=== PATIENT | male | born 1950 | race Caucasian/White ===

== ENCOUNTER 2017-01-16 10:45 | Inpatient (IN) | payer OTHER ==
[2016-12-14 15:00] VITALS: BMI 27.0
--- NOTE | 2016-12-14 15:31 | PAT Medication Instructions ---
Service Date Dec 14, 2016. Current Home Medication List Atorvastatin (Lipitor), 40 MG PO QPM Esomeprazole Magnesium (Nexium), 40 MG PO QAM Fiber (Fiber Formula), 1 CAP PO QAM Fish Oil ([place]-3), 1 CAP PO BID Flaxseed (Linseed) (Flaxseed Oil), 1 CAP PO BID Hydrocodone/Acetaminophen 5MG/325MG ([place] 5MG/325MG), 1 TABLET PO BID PRN for Pain Naproxen (Naprosyn), 375 MG PO BID Medication Instructions For Your Scheduled Surgery - Hold the following medications 2 weeks prior to surgery: Fish Oil ([place]-3), 1 CAP PO BID Flaxseed (Linseed) (Flaxseed Oil), 1 CAP PO BID - Hold the following medications 1 weeks prior to surgery per surgeon's instructions: Naproxen (Naprosyn), 375 MG PO BID - Hold the following medications the morning of surgery: Fiber (Fiber Formula), 1 CAP PO QAM Naproxen (Naprosyn), 375 MG PO BID - Take the following medications the morning of surgery with a sip of water OTHERWISE NOTHING TO EAT OR DRINK AFTER MIDNIGHT: Hydrocodone/Acetaminophen 5MG/325MG ([place] 5MG/325MG), 1 TABLET PO BID PRN for Pain (may take if needed up to 4 hours prior to surgery) Esomeprazole Magnesium (Nexium), 40 MG PO QAM - Take the following medications as scheduled the night before surgery: Hydrocodone/Acetaminophen 5MG/325MG ([place] 5MG/325MG), 1 TABLET PO BID PRN for Pain Atorvastatin (Lipitor), 40 MG PO QPM If you have any questions please call us at [phone] or [phone] or [phone]
--- NOTE | 2016-12-14 16:05 | DIAGNOSTIC IMAGING REPORT ---
CHEST PREADMISSION(PA/LAT) CLINICAL HISTORY: PAT preoperative evaluation COMPARISON STUDY: No previous studies for comparison. FINDINGS: The bones soft tissues and hemidiaphragms are normal. The cardiomediastinal silhouette is normal. The lungs are clear. The pulmonary vasculature is normal. IMPRESSION: Negative chest. Electronically signed by: Siva Peters M.D. 12/14/2016 4:03 PM Dictated Date/Time: 12/14/2016 4:02 PM
[2016-12-14 16:17] LABS: URINE APPEARANCE CLEAR (CLEAR); URINE BILIRUBIN NEG (NEG); URINE COLOR YELLOW; URINE NITRITE NEG (NEG); URINE SPECIFIC GRAVITY 1.022 (1.000-1.030); UROBILINOGEN NEG (NEG); ZZUR CULT IF INDIC CLEAN CATCH NO
[2016-12-14 16:18] LABS: BASO % 0.3 %; BASO ABS # 0.02 K/uL (0-0.2); COMPLETE YES; EOS % 2.5 %; HEMATOCRIT 42.5 % (42-52); IG% 0.2 %; LYMPH % 36.7 %; LYMPH ABS # 2.23 K/uL (1.2-3.4); MEAN CELL VOLUME 93.8 fL (80-100); MEAN CORPUSCULAR HEMOGLOBIN 33.8 pg (25-34); MEAN PLATELET VOLUME 10.4 fL (7.4-10.4); MONO % 4.6 %; NEUT % 55.7 %; PLATELET COUNT 179 K/uL (130-400); RED BLOOD COUNT 4.53 M/uL (4.7-6.1); WHITE BLOOD COUNT 6.08 K/uL (4.8-10.8)
[2016-12-14 16:18] LABS: MANUAL MICROSCOPIC REQUIRED? NO; REVIEW REQ? NO
[2016-12-14 16:26] LABS: BUN/CREATININE RATIO 18.7 (10-20); CALCIUM 8.7 mg/dl (8.5-10.1)
[2016-12-14 16:27] LABS: PROTHROMBIN TIME (PATIENT) 10.5 SECONDS (9.0-12.0)
[2016-12-15 06:05] LABS: ESTIMATED AVERAGE GLUCOSE 126 mg/dl; HA1C FLAG Normal (Normal)
--- NOTE | 2017-01-15 19:58 | HISTORY & PHYSICAL EXAMINATION ---
DATE OF ADMISSION: 01/16/2017 ADMISSION HISTORY AND PHYSICAL CHIEF COMPLAINT: Chronic right knee pain. HISTORY OF PRESENT ILLNESS: This is a 66-year-old male patient of Dr. Garcia'kate complaining of chronic right knee pain, longstanding, now progressively getting worse. He has been diagnosed with end-stage osteoarthritis, per clinical and radiographic exams. He has failed conservative treatment including anti-inflammatories, intra-articular injections and the use of a brace. The patient has increased pain with weightbearing activities and his pain does interfere with his activities of daily living. PAST MEDICAL HISTORY: Hypercholesterolemia, carpal tunnel syndrome, osteoarthritis, acid reflux, hiatal hernia and dental issues. SOCIAL HISTORY: Nonsmoker, nondrinker. PAST SURGICAL HISTORY: Negative. FAMILY HISTORY: Noncontributory. REVIEW OF SYSTEMS: The patient complains of chronic right knee pain and occasional instability. Otherwise, denies any shortness of breath, chest pain, nausea, vomiting or any other joint complaints. MEDICATIONS: 1. Fiber supplement daily. 2. Naprosyn as needed. 3. Atorvastatin 40 mg daily. 4. Flax seed oil 1000 mg daily. 5. [place] as needed. 6. Fish oil 500 mg daily. 7. Omeprazole 40 mg daily. ALLERGIES: No known drug allergies. PHYSICAL EXAMINATION: GENERAL: Well-developed, well-nourished 66-year-old male in no acute distress. He is alert and oriented x3 and pleasant. HEENT: Normocephalic, atraumatic. Extraocular motions are intact. Pupils are equal and reactive to light. HEART: Regular rate and rhythm, no murmurs appreciated. LUNGS: Clear. ABDOMEN: Soft, nontender, bowel sounds present. EXTREMITIES: Right knee reveals a varus deformity. He has medial joint line tenderness with a mild effusion. He has crepitation with passive range of motion, which is limited to 0-125 degrees. NEUROLOGIC: Neurovascularly, he is intact in his right lower extremity with 5/5 strength. DIAGNOSES: Right knee end-stage osteoarthritis, hypercholesterolemia, carpal tunnel syndrome, acid reflux, hiatal hernia and dental issues. PLAN: The patient was advised of his diagnosis. Indications, risks, benefits, and postop course have all been reviewed. The patient wishes to proceed with a right total knee arthroplasty. Necessary consent forms, preoperative testing and clearances will be obtained.
[~2017-01-16] VITALS: Ht 180.3 cm; Wt 89.9 kg
[2017-01-16] VITALS (7 sets, daily range): BP systolic 103–145; BP diastolic 62–88; PULSE 59–70; TEMP 36–36.6; O2SAT 95–98; Ht 180.3 cm; Wt 89.9 kg
[2017-01-16] MEDS: TRANEXAMIC ACID INJ 1,000 MG in SODIUM CHLORIDE 0.9% 100ML 100 ML IV SCH ×2 (06:30→13:06)
[~2017-01-16 10:45] MED LIST: ACETAMINOPHEN 500 MG TAB PO SCH; ATOR-24 PO; BUPIVACAINE 0.5 % 5 MG/1 ML PF 10ML VIAL ONE; CEFAZOLIN 2000 MG/60 ML D5W 60 ML IV SCH; CeleBREX 200 MG CAP PO SCH; DEXAMETHASONE 4 MG TAB PO SCH; FAMOTIDINE 20 MG TAB PO SCH; FIBE1CAP PO; FLAX12003 PO; GABAPENTIN 300 MG CAP PO SCH; HYDR-5688 PO; LACTATED RINGER'S 1000ML 1,000 ML IV SCH; LACTATED RINGER'S 1000ML IV SCH; LACTATED RINGER'S 500 ML IV SCH; METOCLOPRAMIDE HCL 10 MG TAB PO SCH; NAPR1TAB48 PO; NXM/40 PO; OMEG10007 PO; ROPIVACAINE 5MG/ML 30 ML 150 MG, BUPIVACAINE/EPINEPHR 0.5% MPF 30 ML, KETOROLAC TROMETH... INFIL SCH
--- NOTE | 2017-01-16 12:21 | History & Physical Bridge Note ---
H&P Re-Evaluation Bridge Note: I have examined the patient, reviewed the History & Physical and in the interval since the performance of the History & Physical I have noted the following changes of clinical significance: No changes noted
[2017-01-16] MEDS ORDERED: FENTANYL CITRATE INJ 50 MCG/1 ML 2 ML VIAL IV PRN (12:30)
[2017-01-16] MEDS ORDERED: EpHEDrine SULFATE INJ 50 MG/ML AMP IV PRN (12:30)
[2017-01-16] MEDS ORDERED: ONDANSETRON INJ 2 MG/ML 2 ML VIAL IV PRN ×2 (12:30→16:15)
[2017-01-16] MEDS ORDERED: ATROPINE SULFATE 0.1 MG/ML 5ML SYR IV PRN (12:30)
[2017-01-16] MEDS ORDERED: BACITRACIN 50000 UNIT VIAL ONE (12:53)
[2017-01-16] MEDS ORDERED: POVIDONE-IODINE OP SOLN 30 ML BTL ONE (12:53)
[2017-01-16] MEDS ORDERED: ORTHO JOINT ANESTHETIC ONE (12:53)
[2017-01-16] MEDS ORDERED: MIDAZOLAM HCL 1 MG/ML 2ML VIAL ONE (13:20)
[2017-01-16] MEDS ORDERED: FENTANYL CITRATE INJ 50 MCG/1 ML 2 ML VIAL ONE ×2 (13:20→15:50)
[2017-01-16] MEDS ORDERED: PROPOFOL IV EMULSION 10 MG/ML 20 ML VIAL IV ONE (14:28)
[2017-01-16] MEDS ORDERED: LIDOCAINE HCL 2% 2 ML VIAL (20MG/ML) ONE (14:28)
--- NOTE | 2017-01-16 15:47 | [facility] Operative Report ---
Operative Report Operative Date January 16, 2017. Pre-Operative Diagnosis Right knee end-stage osteoarthritis Post-Operative Diagnosis same Procedure(s) Performed right total knee replacement Surgeon Dr. Garcia Hammerer Surgeon(s) Siva Ortez PA-C Estimated Blood Loss 5mL Findings end stage djd oa medial compartment Specimens A. Right knee bone and tissue Drains 2 hemovac Disposition Recovery Room / PACU Indications end stage djd oa I attest to the content of the Intraoperative Record and any orders documented therein. Any exceptions are noted below.
[2017-01-16] MEDS ORDERED: MAGNESIUM HYDROXIDE SUSP 30 ML UDC PO PRN (16:15)
[2017-01-16] MEDS ORDERED: ZOLPIDEM TARTRATE 5 MG TAB PO PRN (16:15)
[2017-01-16] MEDS ORDERED: BISACODYL 10 MG SUPP PR PRN (16:15)
[2017-01-16] MEDS ORDERED: SOD PHOSPHATE/SOD BIPHOSPHATE ENEMA 132 ML BTL PR PRN (16:15)
[2017-01-16] MEDS ORDERED: TRAMADOL HCL 50 MG TAB PO PRN (16:15)
[2017-01-16] MEDS ORDERED: OXYCODONE HCL IR 5 MG TAB (IMMEDIATE RELEASE) PO PRN (16:15)
[2017-01-16] MEDS ORDERED: MoRPHine SULFATE 2 MG/ML CARP IV PRN (16:15)
--- NOTE | 2017-01-16 16:35 | DIAGNOSTIC IMAGING REPORT ---
RIGHT KNEE 1 OR 2 VIEWS ROUTINE CLINICAL HISTORY: Postop examination COMPARISON: None. DISCUSSION: There are postsurgical changes of a total right knee arthroplasty and patellar resurfacing. The femoral and tibial components appear well seated. Overlying skin hernan and surgical drains are evident. There is air within soft tissues consistent with recent surgery. IMPRESSION: Postsurgical changes of a total right knee arthroplasty. Electronically signed by: Marlon Riley M.D. 01/16/2017 4:33 PM Dictated Date/Time: 01/16/2017 4:31 PM
--- NOTE | 2017-01-16 16:49 | Anesthesiology Progress Note ---
Anesthesia Post Op Note Date & Time January 16, 2017 at 16:49 Vital Signs Pain Intensity: 0 Vital Signs Past 12 Hours Date Time Temp Pulse Resp B/P Pulse Ox O2 Delivery O2 Flow Rate FiO2 01/16/17 16:40 36.4 61 15 129/74 95 Nasal Cannula 2 01/16/17 16:30 60 13 112/70 96 Nasal Cannula 2 01/16/17 16:20 63 16 117/72 96 Nasal Cannula 2 01/16/17 16:10 77 13 124/75 95 Nasal Cannula 2 01/16/17 16:01 36.5 80 16 119/64 99 Mask 10 01/16/17 11:13 36.6 64 18 145/88 95 Room Air Notes Mental Status: alert / awake / arousable, participated in evaluation Pt Amnestic to Procedure: Yes Nausea / Vomiting: adequately controlled Pain: adequately controlled Airway Patency, RR, SpO2: stable & adequate BP & HR: stable & adequate Hydration State: stable & adequate Neuraxial Anesthesia: was administered, sensory block is resolving Anesthetic Complications: no major complications apparent Pt doing well.
[2017-01-16] MEDS ORDERED: MoRPHine SULFATE 4 MG/ML 1 ML CARP\\VIAL IV PRN (18:00)
[2017-01-16] MEDS: D5W AND 1/2NSS + 20MEQ KCL 1,000 ML IV SCH (18:06)
--- NOTE | 2017-01-16 18:09 | Progress Note ---
Progress Note Date of Service January 16, 2017. Progress Note consult done, [id number]
--- NOTE | 2017-01-16 18:28 | INTERNAL MEDICINE CONSULTATION ---
DATE OF ADMISSION: 01/16/2017 HISTORY AND PHYSICAL FOR CONSULTATION NOTE PHYSICIAN REQUESTING CONSULTATION: Dr. Garcia. REASON FOR CONSULTATION: Medical management after a right total knee arthroplasty. HISTORY OF PRESENT ILLNESS: The patient is a 66-year-old white male with a significant past medical history of dyslipidemia, carpal tunnel syndrome, osteoarthritis, GERD, hiatal hernia and dental issues, was admitted to Dr. Garcia's service because of chronic right knee pain. The patient had right total knee arthroplasty today. The procedure went well. When I interviewed with him, he was awake, alert and orientated, eating meal. No complaint. Denied fevers or chills. Denied cough, sputum, shortness of breath. Denied palpitation, lower extremity swelling. Denied dysuria, urgency and frequency. Denied nausea, vomiting, abdominal pain, diarrhea, constipation. Denied facial droop, slurry speeches or local weakness. PAST MEDICAL HISTORY: Like I mentioned in the above. ALLERGIES: No known drug allergy. SOCIAL HISTORY: Denied alcohol abuse disorder, denied tobacco abuse disorder, denied illicit drug abuse. PAST SURGICAL HISTORY: Include today right total knee arthroplasty. FAMILY HISTORY: Noncontributory. REVIEW OF SYSTEMS: Please see HPI, otherwise 14 points organ system review were negative. MEDICATIONS: Prior to admission include a fiber supplementation daily, naproxen as needed, atorvastatin 40 mg p.o. daily, [place] as needed, fish oil 500 mg p.o. daily, omeprazole 40 mg p.o. daily. PHYSICAL EXAMINATION: VITAL SIGNS: Temperature is 36, pulse 60, respiration rate 16, blood pressure 115/73, pulse ox was 98% in room air. GENERAL: The patient is white male, awake, alert and orientated, conversational, follows all commands, smiling. HEAD: Normocephalic. EYES: Pupils equal, round responds to light. EARS: Ear was normal. NOSE: Normal. NECK: Supple. Thyroid no enlargement. Trachea midline. HEART: Regular rhythm. S1, S2. LUNGS: Decreased breathing sounds. There were no wheezing, rhonchi or crackles. ABDOMEN: Soft, nontender. Bowel sound was positive. GENITOURINARY AND RECTAL: Deferred. EXTREMITIES: Right knee s/p arthroplasty, in dressing. Bilateral lower extremity - no swelling, Homans sign was negative, calves were nontender. NEUROLOGICAL EVALUATION: Cranial nerves II-XII was intact. There was no focal deficit. LABORATORY STUDIES: WBC 6, hemoglobin 15, platelets 179. PT/INR was 10/1. Sodium 142, potassium 4, BUN 19, creatinine 1. Blood glucose 148, HbA1c 6. UA was not remarkable. IMAGING DATA: Preop chest x-ray on 12/14/2016 was negative. ASSESSMENT AND PLAN: A 66-year-old white male with the problems below: 1. Right knee osteoarthritis, status post right total knee arthroplasty. this problem , PT, OT and DVT prophylaxis and pain control and discharge plan will be per primary team. 2. Past medical history of dyslipidemia, acid reflux. Will continue current medications. I see the primary team has started this medicine already. Thank you for the chance to involve in the care of your patient. We will continue to follow up. SOFIYA
[2017-01-16] MEDS: OXYCODONE HCL 10 MG TABCR (OXYCONTIN) PO SCH (20:40)
[2017-01-16] MEDS: DOCUSATE SODIUM 100 MG CAP PO SCH (20:40)
[2017-01-16] MEDS: ASPIRIN 81 MG ECTAB PO SCH (20:41)
[2017-01-16] MEDS: CeleBREX 200 MG CAP PO SCH (20:42)
[2017-01-16] MEDS: ATORVASTATIN 40 MG TAB PO SCH (20:52)
[2017-01-16] MEDS ORDERED: ATORVASTATIN 20 MG TAB PO SCH (21:00)
[2017-01-16] MEDS: CEFAZOLIN IV 2,000 MG in DEXTROSE 5% 50ML 50 ML IV SCH (21:37)
[2017-01-16] MEDS: ACETAMINOPHEN 500 MG TAB PO SCH (21:38)
[2017-01-17] VITALS (8 sets, daily range): BP systolic 101–131; BP diastolic 58–72; PULSE 60–70; TEMP 36.3–36.6; O2SAT 95–98
[2017-01-17] MEDS: D5W AND 1/2NSS + 20MEQ KCL 1,000 ML IV SCH ×2 (04:17→13:06)
[2017-01-17] MEDS: CEFAZOLIN IV 2,000 MG in DEXTROSE 5% 50ML 50 ML IV SCH (05:43)
[2017-01-17] MEDS: ACETAMINOPHEN 500 MG TAB PO SCH ×3 (05:43→20:09)
[2017-01-17 05:50] LABS: HEMATOCRIT 35.1 % (42-52); MEAN CELL VOLUME 95.1 fL (80-100); MEAN CORPUSCULAR HEMOGLOBIN 33.9 pg (25-34); MEAN CORPUSCULAR HGB CONC 35.6 g/dl (32-36); MEAN PLATELET VOLUME 10.2 fL (7.4-10.4); PLATELET COUNT 199 K/uL (130-400); RED BLOOD COUNT 3.69 M/uL (4.7-6.1); WHITE BLOOD COUNT 13.33 K/uL (4.8-10.8)
--- NOTE | 2017-01-17 06:12 | OPERATIVE REPORT ---
DATE OF OPERATION: 01/16/2017 INDICATION FOR PROCEDURE: The patient is a 66-year-old male who presents with chronic progressive pain in his right knee due to osteoarthritis, medial compartment osteoarthritis, bone on bone medial compartment. PREOPERATIVE DIAGNOSIS: End-stage osteoarthritis of the right knee. POSTOPERATIVE DIAGNOSIS: Same. PROCEDURE: Right total knee arthroplasty. SURGEON: Dr. Garcia. FORMS EXAMINER: CODY Crane ANESTHESIA: Spinal and regional block and Orthomix. OPERATIVE PROCEDURE: The patient was taken to the operating room, anesthetized under spinal regional block anesthetic. Pneumatic tourniquet was placed in his right upper thigh. His right lower extremity was prepped and draped in a sterile fashion. We used ChloraPrep. His knee exam demonstrated a varus knee, some mild pseudolaxity medially, only instability due to joint space loss. He had good range of motion. After the pneumatic tourniquet was placed to his upper thigh, his right lower extremity was prepped and draped with ChloraPrep in the usual fashion. Leg was elevated, exsanguinated with an Esmarch bandage. Pneumatic tourniquet was raised to 300 mmHg. A longitudinal incision was made across the right knee. Skin was incised sharply in a longitudinal fashion. Subcutaneous flaps were elevated. The patient had some thickened prepatellar bursal bands that were resected. The incision was made through medial retinaculum and extended up in the mid third of the quadriceps tendon extending down to the medial tibial tubercle. Bleeders were cauterized as necessary. The intraarticular findings demonstrated bone on bone in the medial compartment. He had tricompartmental osteophytes. I used the Richardson \T\ Nephew Journey 2.0, total knee arthroplasty system using Visionaire MRI templating. His knee was exposed by excising the infrapatellar fat pad, excising the medial meniscus remnants of the lateral meniscus and the cruciate ligaments. The fat pad over the anterior femur just above the articular surface was resected for placement of the component in that area. The lateral synovial bands were released. The femur was exposed. The custom femoral cutting block was pinned in position. The distal femoral cut was made. Then the 5-in-1 cutting block was placed with a size 6 femur. Anterior, posterior and chamfer cuts were made. Then the knee was extended. A subperiosteal peel lateral release was performed around the patella. The patella width was measured and the width was reproduced using a freehand cut technique and a 35 patella component. Drill holes were made and the excess lateral facet of patella was beveled off to prevent any impingement on the femoral condyle of the prosthetic. The tibia was then exposed. The custom tibial cutting block was pinned in position. The proximal tibial cut was made. Lamina milking machine mechanic was used to assess ligamentous balance. I pie jules lengthened the MCL to get balanced extension and flexion gap. The tibia was exposed. The 5 tibial baseplate was externally rotated in line with the tibial tubercle, pinned in position and the punch for the stem was used. Then, the 6 femoral trial was inserted, centered and the notch cutting devices were used. A collet was placed and a 13 poly insert gave balanced ligaments through full range of motion. We did have some slight liftoff of the patella, so we did do a lateral release, releasing the lateral retinaculum leaving the synovium intact releasing the IT band fibers attached to the lateral retinaculum to a centrally tracking patella. The trials were removed and the knee was copiously irrigated with pulsatile lavage antibiotic solution and bacitracin. We did inject the knee with the anesthetic cocktail prior to irrigation. The final components were then cemented with the Simplex cement. The final components were the 6 Oxinium Richardson \T\ Nephew Journey 2.0 posterior stabilized right femoral component, the 5 tibial baseplate, 13 poly insert posterior stabilized and the 35 patella. All cement cured, we used Betadine soak protocol. Then when the cement hardened the 2 drains were brought out laterally. The knee was copiously irrigated with pulsatile lavage antibiotic solution and bacitracin first and then the quadriceps tendon and medial retinaculum were closed with interrupted [id number] #1 Vicryl sutures. The knee was taken through full range of motion, repair was secure. Subcutaneous tissue closed with interrupted 2-0 Vicryl, skin was closed with hernan. Sterile dressings applied and the patient tolerated the procedure well. CODY Crane was my first breaker feeder. He functioned as first breaker feeder for the entire procedure. He assisted in patient positioning, prepping, draping, leg positioning, soft tissue retraction, instrument management during the procedure and he performed the final fascial, subcutaneous and skin closure and will participate in postoperative care of the patient. I attest to the content of the Intraoperative Record and any orders documented therein. Any exceptions are noted below. MTDD
[2017-01-17 06:21] LABS: BUN/CREATININE RATIO 16.7 (10-20); CREATININE 1.1 mg/dl (0.60-1.40); POTASSIUM 4.3 mmol/L (3.5-5.1)
[2017-01-17 06:27] LABS: CALCIUM 8.1 mg/dl (8.5-10.1)
[2017-01-17] MEDS: PANTOprazole SOD 40 MG TAB PO SCH (08:15)
[2017-01-17] MEDS: ASPIRIN 81 MG ECTAB PO SCH ×2 (08:15→20:10)
[2017-01-17] MEDS: CeleBREX 200 MG CAP PO SCH ×2 (08:15→20:10)
[2017-01-17] MEDS: DOCUSATE SODIUM 100 MG CAP PO SCH ×2 (08:15→20:09)
[2017-01-17] MEDS: OXYCODONE HCL 10 MG TABCR (OXYCONTIN) PO SCH ×2 (08:16→20:08)
[2017-01-17] MEDS: MULTIVITAMIN TAB PO SCH (08:16)
--- NOTE | 2017-01-17 08:37 | Anesthesiology Progress Note ---
Anesthesia Post Op Note Date & Time January 17, 2017 at 08:37 Vital Signs Pain Intensity: 0.0 Vital Signs Past 12 Hours Date Time Temp Pulse Resp B/P Pulse Ox O2 Delivery O2 Flow Rate FiO2 01/17/17 08:34 96 Room Air 01/17/17 07:43 36.4 60 20 128/68 96 Room Air 01/17/17 03:27 36.6 68 16 101/58 96 Room Air 01/17/17 00:00 Room Air 01/16/17 23:22 36.3 62 16 103/62 96 Room Air Notes Mental Status: alert / awake / arousable, participated in evaluation Anesthetic Complications: no major complications apparent
[2017-01-17] MEDS ORDERED: FIBER PO SCH (09:00)
--- NOTE | 2017-01-17 10:33 | Orthopedic Progress Note ---
Orthopedic Progress Note Date of Service January 17, 2017. Subjective Post OP Day: 1 Reports: feeling well, pain controlled w PO medications, Denies: SOB, calf pain , chest pain, complaints, light headedness, nausea / vomiting Objective calves soft nontender, N/V intact, capillary refill less than 2 sec., dressing C /D/I, A&O x3, toes mobile Date Time Temp Pulse Resp B/P Pulse Ox O2 Delivery O2 Flow Rate FiO2 01/17/17 08:34 96 Room Air 01/17/17 07:52 Room Air 01/17/17 07:43 36.4 60 20 128/68 96 Room Air 01/17/17 03:27 36.6 68 16 101/58 96 Room Air 01/17/17 00:00 Room Air 01/16/17 23:22 36.3 62 16 103/62 96 Room Air 01/16/17 20:04 36.5 61 17 116/73 96 Room Air 01/16/17 19:00 36.1 70 17 121/72 98 Nasal Cannula 2.0 01/16/17 18:09 36.5 62 17 128/77 97 Nasal Cannula 2.0 01/16/17 17:31 36.0 60 16 115/73 98 Nasal Cannula 2.0 01/16/17 17:15 Nasal Cannula 2.0 01/16/17 17:14 Nasal Cannula 2.0 01/16/17 17:03 36.4 59 18 112/67 95 Nasal Cannula 2.0 01/16/17 16:50 61 13 121/73 95 Nasal Cannula 2 01/16/17 16:40 36.4 61 15 129/74 95 Nasal Cannula 2 01/16/17 16:30 60 13 112/70 96 Nasal Cannula 2 01/16/17 16:20 63 16 117/72 96 Nasal Cannula 2 01/16/17 16:10 77 13 124/75 95 Nasal Cannula 2 01/16/17 16:01 36.5 80 16 119/64 99 Mask 10 01/16/17 11:13 36.6 64 18 145/88 95 Room Air Laboratory Results 24 Hours: Test 01/17/17 05:25 Hematocrit 35.1 % Hemoglobin 12.5 g/dL Assessment & Plan Assessment: POD #1, Right TKA Plan: PT/ OT DVT proph- ASA D/C planning- OPPT Appreciate medicine input. Inhouse Planning Pain Management: Celebrex, Oxycontin, Ultram, Morphine, PO Tylenol, Oxy IR DVT Prophylaxis: TEDs, SCDs, ASA Discharge Planning Discharge Planning: home with oppt Pain Management: Celebrex, Oxycontin, PO Tylenol, Oxy IR DVT Prophylaxis: TEDs, ASA Therapy: Physical Therapy, Occupational Therapy
[2017-01-17] MEDS: ATORVASTATIN 40 MG TAB PO SCH (20:09)
[2017-01-18] MEDS: ACETAMINOPHEN 500 MG TAB PO SCH (05:30)
[2017-01-18 06:37] VITALS: BP 111/70; PULSE 66; TEMP 36.5; O2SAT 99
[2017-01-18 07:38] LABS: HEMATOCRIT 35.4 % (42-52); MEAN CELL VOLUME 96.2 fL (80-100); MEAN CORPUSCULAR HEMOGLOBIN 32.9 pg (25-34); MEAN CORPUSCULAR HGB CONC 34.2 g/dl (32-36); MEAN PLATELET VOLUME 10.2 fL (7.4-10.4); PLATELET COUNT 202 K/uL (130-400); RED BLOOD COUNT 3.68 M/uL (4.7-6.1); WHITE BLOOD COUNT 12.85 K/uL (4.8-10.8)
[2017-01-18] MEDS: MULTIVITAMIN TAB PO SCH (08:34)
[2017-01-18] MEDS: OXYCODONE HCL 10 MG TABCR (OXYCONTIN) PO SCH (08:34)
[2017-01-18] MEDS: PANTOprazole SOD 40 MG TAB PO SCH (08:34)
[2017-01-18] MEDS: ASPIRIN 81 MG ECTAB PO SCH (08:34)
[2017-01-18 08:40] LABS: BUN/CREATININE RATIO 12.2 (10-20); CALCIUM 8.3 mg/dl (8.5-10.1); POTASSIUM 4.1 mmol/L (3.5-5.1)
[2017-01-18] MEDS: DOCUSATE SODIUM 100 MG CAP PO SCH (09:10)
[2017-01-18] MEDS: CeleBREX 200 MG CAP PO SCH (09:10)
--- NOTE | 2017-01-18 09:19 | Orthopedic Progress Note ---
Orthopedic Progress Note Date of Service January 18, 2017. Subjective Post OP Day: 2 Reports: feeling well, pain controlled w PO medications, Denies: SOB, calf pain , chest pain, complaints, light headedness, nausea / vomiting Objective calves soft nontender, N/V intact, capillary refill less than 2 sec., dressing C /D/I, A&O x3, toes mobile [place] in tact. Date Time Temp Pulse Resp B/P Pulse Ox O2 Delivery O2 Flow Rate FiO2 01/18/17 07:15 Room Air 01/18/17 06:37 36.5 66 16 111/70 99 Room Air 01/17/17 23:43 Room Air 01/17/17 23:10 36.6 70 16 109/67 96 Room Air 01/17/17 16:00 98 Room Air 01/17/17 14:55 36.3 63 17 131/68 98 Room Air 01/17/17 11:25 36.5 64 20 120/72 95 Room Air Laboratory Results 24 Hours: Test 01/18/17 07:09 Hematocrit 35.4 % Hemoglobin 12.1 g/dL Assessment & Plan Assessment: POD #2, Right TKA Plan: PT/ OT DVT proph- ASA D/C planning- OPPT today Appreciate medicine input. Inhouse Planning Pain Management: Celebrex, Oxycontin, Ultram, Morphine, PO Tylenol, Oxy IR DVT Prophylaxis: TEDs, SCDs, ASA Discharge Planning Discharge Planning: home with oppt Pain Management: Celebrex, Oxycontin, PO Tylenol, Oxy IR DVT Prophylaxis: TEDs, ASA Therapy: Physical Therapy, Occupational Therapy
[2017-01-18] MEDS ORDERED: CLB200 PO (09:21)
[2017-01-18] MEDS ORDERED: ONDA8TAB6 PO (09:21)
[2017-01-18] MEDS ORDERED: ACET-1138 PO (09:21)
[2017-01-18] MEDS ORDERED: RXC5 PO (09:21)
[2017-01-18] MEDS ORDERED: OXYSR10 PO (09:21)
[2017-01-18] MEDS ORDERED: ASPEC81 PO (09:21)
--- NOTE | 2017-01-18 09:22 | Discharge Instructions ---
Discharge Instructions Date of Service January 18, 2017. Admission Reason for Admission: Right Knee Degenerative Joint Disease Discharge Discharge Diagnosis / Problem: Right TKA Discharge Goals Goal(s): Improve function Activity Recommendations Activity Limitations: as noted below . Instructions / Follow-Up Instructions / Follow-Up ACTIVITY RECOMMENDATIONS: SELF CARE INSTRUCTIONS AFTER TOTAL KNEE REPLACEMENT A. You may need to continue a physical therapy program after discharge from the hospital. There are several options available to you. Your doctor will assist you in selecting the best one for you. 1. An out-patient facility 2 to 3 times a week for therapy or home therapy. 2. Continue working on all exercises taught to you in the hospital. Your goals should be to increase bending of your knee to 90 degrees and beyond and to fully straighten your knee. B. You may progress at your own pace from walking with a walker or crutches to a cane; then to no assistive devices. C. Make walking a part of your daily routine. Be up as much as comfortable with rest periods throughout the day. Rest with leg elevation is very important. Use the ice wrap frequently for the first 3-4 weeks. D. There are no restrictions on activities. You may ride in a car, shop, participate in slackman and all social activities. E. Wear the long elastic stockings (AMPARO hose) 20 hours a day for 2 weeks after surgery. They can be removed several times a day for laundering and for a bath. F. You may shower, no tub baths until cleared by your doctor. SPECIAL CARE INSTRUCTIONS: VERY IMPORTANT TO READ AND REVIEW A. There are a few signs you need to watch for after you are home. Call [facility] if you notice any of the followin. Increased severe knee pain. Some pain is expected especially when you exercise. 2. Increased swelling in your leg or knee; pain or swelling of the calf muscle in either lower leg. 3. Any fluid drainage from the incision. 4. Shortness of breath or chest pain. B. Please call [facility] at if you have any concerns or questions about your operation or recovery. The doctor or his nurse will return your call promptly. C. You must take antibiotics before dental work, bladder, bowel or other surgery. Your doctor will provide you with a permanent care to carry describing this precaution. IMPORTANT: * REMEMBER TO TAKE ASPIRIN, 81 MG, TWICE DAILY FOR 4 WEEKS UNLESS OTHERWISE DIRECTED. THIS IS YOUR BLOOD THINNER. * HIGH RISK PATIENTS MAY BE PRESCRIBED A STRONGER BLOOD THINNER. THIS WILL BE PROVIDED AT DISCHARGE. * CALL IF INCREASED PAIN, REDNESS, DRAINAGE OR FEVER GREATER THAT 101. * WEAR AMPARO HOSE 20 HOURS PER DAY FOR 2 WEEKS. * YOU MAY HAVE A LARGE BAND-AID LIKE DRESSING (SILVERON). THIS WILL REMAIN ON YOUR INCISION FOR 7 DAYS, THEN CAN BE REMOVED. IF INCISION IS LEAKING THROUGH DRESSING, CALL THE OFFICE . FOLLOW UP VISIT: If appointment is not already scheduled: Please call [facility] to make a follow-up appointment for 2 weeks after your surgery at . Current Hospital Diet Patient's current hospital diet: Regular Diet Discharge Diet Recommended Diet: Regular Diet Procedures Procedures Performed: Right total knee arthroplasty Pending Studies Studies pending at discharge: no Laboratory Results Hemoglobin A1c Test 12/14/16 15:39 Range/Units Estimated Average Glucose 126 mg/dl Hemoglobin A1c 6.0 H 4.5-5.6 % Medical Emergencies . Who to Call and When: Medical Emergencies: If at any time you feel your situation is an emergency, please call 911 immediately. . Non-Emergent Contact Non-Emergency issues call your: Primary Care Provider . "Provider Documentation" section prepared by Siva Ortez. . VTE Core Measure Inpt VTE Proph given/why not?: Other Anticoagulation (asa), T.E.D. Stockings, SCD's [place] Drug Monitoring Program Search Results: patient reviewed within database, no issues identified
[2017-01-18 11:38] VITALS: BP 111/70; PULSE 66; TEMP 36.5; O2SAT 99
--- NOTE | 2017-01-18 13:35 | Hospitalist Progress Note ---
Hospitalist Progress Note Date of Service January 18, 2017. (Suzanne Max, AJITHC) Subjective Pt evaluation today including: conversation w/ patient, physical exam, chart review, lab review, review of inpatient medication list Pain: None PO Intake: Tolerating PO diet Voiding: no voiding problems Patient reports feeling well. He states that his knee is not really bothering him and that PT went well. He is urinating without difficulty and passing gas. He is tolerating a PO diet well. The patient denies fevers, chills, sweats, chest pain, palpitations, claudication, cough, wheezing, shortness of breath, nausea, vomiting, abdominal pain, dysuria, hematuria, urinary retention, paralysis, weakness, numbness and tingling. Additional Comments: See HPI for pertinent positives and negatives. All other systems reviewed and negative. (Suzanne Max, AJITHC) Objective Vital Signs Date Time Temp Pulse Resp B/P Pulse Ox O2 Delivery O2 Flow Rate FiO2 01/18/17 11:38 36.5 66 16 99 Room Air 01/18/17 07:15 Room Air 01/18/17 06:37 36.5 66 16 111/70 99 Room Air 01/17/17 23:43 Room Air 01/17/17 23:10 36.6 70 16 109/67 96 Room Air 01/17/17 16:00 98 Room Air 01/17/17 14:55 36.3 63 17 131/68 98 Room Air (Suzanne Max, CODY-C) Physical Exam Notes: General appearance: Well-developed, well-nourished, no apparent distress Head: Normocephalic, atraumatic Eyes: Normal inspection, PERRL, EOMI ENT: Normal ENT inspection, hearing grossly normal, pharynx normal Neck: Supple, no JVD, trachea midline Respiratory/Chest: Lungs clear to auscultation, normal breath sounds, no respiratory distress Cardiovascular: Regular rate & rhythm, no gallop, no murmur Abdomen/GI: Normal bowel sounds, non-tender, soft Extremities/Musculoskeletal: Normal inspection, no calf tenderness, no pedal edema Neurological/Psych: Alert, normal mood/affect, oriented x 3 Skin: Normal color, warm/dry, no rash (Suzanne Max, AJITHC) Laboratory Results Last 24 Hours Test 01/18/17 07:09 White Blood Count 12.85 K/uL Red Blood Count 3.68 M/uL Hemoglobin 12.1 g/dL Hematocrit 35.4 % Mean Corpuscular Volume 96.2 fL Mean Corpuscular Hemoglobin 32.9 pg Mean Corpuscular Hemoglobin Concent 34.2 g/dl RDW Standard Deviation 46.2 fL RDW Coefficient of Variation 13.2 % Platelet Count 202 K/uL Mean Platelet Volume 10.2 fL Sodium Level 145 mmol/L Potassium Level 4.1 mmol/L Chloride Level 113 mmol/L Carbon Dioxide Level 26 mmol/L Anion Gap 6.0 mmol/L Blood Urea Nitrogen 12 mg/dl Creatinine 1.00 mg/dl Est Creatinine Clear Calc Drug Dose 78.4 ml/min Estimated GFR () 91.1 Estimated GFR (Non- 78.6 BUN/Creatinine Ratio 12.2 Random Glucose 90 mg/dl Calcium Level 8.3 mg/dl (Suzanne Max ., PA-C) Assessment and Plan 66 y/o male with a history of HLD and GERD who presents s/p right total knee arthroplasty with Dr. Garcia on 01/16 for medical management. -Pain management, DVT prophylaxis, and PT/OT as per primary team -POD #2 Leukocytosis--likely reactive -Pt has no s/s infection -WBC 12.85 on 01/18, slight improvement from 13.33 on 01/17 HLD -Continue atorvastatin 40 mg PO qd GERD -Continue Nexium 40 mg PO qd Code Status -Level I, FULL RESUSCITATION STATUS Pt. is stable from a medical standpoint, we will sign off. Clear for discharge as per primary team. (Suzanne Max ., PA-C) I agree with PA assessment and plan Labs reviewed VSS S/P right TKA Pain controlled Cont OP meds Stable for discharge from medical standpoint Dispo per primary team (Darell Valles D.O.)
--- NOTE | 2017-01-31 11:51 | DISCHARGE SUMMARY ---
HISTORY OF PRESENT ILLNESS: This is a 66-year-old male patient of Dr. Garcia'kate complaining of chronic right knee pain, long-standing, progressively getting worse. The patient has been diagnosed with end-stage osteoarthritis and elected to proceed with a right total knee arthroplasty. PAST MEDICAL HISTORY: Hypercholesterolemia, carpal tunnel syndrome, osteoarthritis, acid reflux, hiatal hernia and dental issues. POSTOPERATIVE COURSE: The patient underwent a right total knee replacement on 01/16/2017. He was followed closely with medical consultation, DVT prophylaxis in the form of aspirin, pain control and physical therapy. The patient did well postoperatively and was discharged on postoperative day #2. PHYSICAL EXAMINATION: On discharge, right knee - Silverlon dressing was clean, dry and intact. There was no redness or drainage and no calf tenderness. Negative Homans sign. Neurologically and neurovascularly he is intact in his right lower extremity. DIAGNOSES: Status post right total knee arthroplasty with a history of hypercholesterolemia, carpal tunnel syndrome, osteoarthritis, acid reflux, hiatal hernia and dental issues. PLAN: The patient was discharged home with outpatient physical therapy. He will continue his preadmission medications with the addition of pain control. He will continue on aspirin twice daily for DVT prophylaxis and followup as an outpatient.
== END 2017-01-18 12:25 | disposition home or self-care (01) | DRG 470 ==
LOC: ENRESERVTM → ENRESERVDT → C.ACU 10:45 → C.3E 11:16
PROVIDERS: ADMIT Orthopaedic Surgery Sports Medicine; ATTEND Orthopaedic Surgery Sports Medicine
PROC: 0SRC0J9 Replacement of Right Knee Joint with Synthetic Substitute, Cemented, Open Approach (ICD-10-PCS; principal; 2017-01-16 13:00)
DX: M17.11 Unilateral primary osteoarthritis, right knee (principal); E78.00 Pure hypercholesterolemia, unspecified; K21.9 Gastro-esophageal reflux disease without esophagitis; K44.9 Diaphragmatic hernia without obstruction or gangrene; R20.0 Anesthesia of skin; D72.829 Elevated white blood cell count, unspecified; E78.5 Hyperlipidemia, unspecified; F17.290 Nicotine dependence, other tobacco product, uncomplicated; G62.9 Polyneuropathy, unspecified; G56.00 Carpal tunnel syndrome, unspecified upper limb; Z79.899 Other long term (current) drug therapy; Z79.891 Long term (current) use of opiate analgesic; Z79.1 Long term (current) use of non-steroidal anti-inflammatories (NSAID)

== ENCOUNTER → 2017-05-10 | Outpatient (CLI) | payer OTHER ==
[~2017-05-10] MED LIST changes: +ACET-1138 PO; -ACETAMINOPHEN 500 MG TAB PO SCH; +ASPEC81 PO; -BUPIVACAINE 0.5 % 5 MG/1 ML PF 10ML VIAL ONE; -CEFAZOLIN 2000 MG/60 ML D5W 60 ML IV SCH; +CLB200 PO; -CeleBREX 200 MG CAP PO SCH; -DEXAMETHASONE 4 MG TAB PO SCH; -FAMOTIDINE 20 MG TAB PO SCH; -FLAX12003 PO; -GABAPENTIN 300 MG CAP PO SCH; -HYDR-5688 PO; -LACTATED RINGER'S 1000ML 1,000 ML IV SCH; -LACTATED RINGER'S 1000ML IV SCH; -LACTATED RINGER'S 500 ML IV SCH; -METOCLOPRAMIDE HCL 10 MG TAB PO SCH; -NAPR1TAB48 PO; -OMEG10007 PO; +ONDA8TAB6 PO; +OXYSR10 PO; -ROPIVACAINE 5MG/ML 30 ML 150 MG, BUPIVACAINE/EPINEPHR 0.5% MPF 30 ML, KETOROLAC TROMETH... INFIL SCH; +RXC5 PO
[2017-05-10 13:54] LABS: BASO % 0.2 %; BASO ABS # 0.01 K/uL (0-0.2); COMPLETE YES; EOS % 3.2 %; HEMATOCRIT 41.4 % (42-52); IG% 0.2 %; LYMPH % 27.7 %; LYMPH ABS # 1.75 K/uL (1.2-3.4); MEAN CELL VOLUME 93.2 fL (80-100); MEAN CORPUSCULAR HEMOGLOBIN 33.1 pg (25-34); MEAN CORPUSCULAR HGB CONC 35.5 g/dl (32-36); MEAN PLATELET VOLUME 10.7 fL (7.4-10.4); MONO % 7.9 %; NEUT % 60.8 %; PLATELET COUNT 210 K/uL (130-400); RED BLOOD COUNT 4.44 M/uL (4.7-6.1); WHITE BLOOD COUNT 6.32 K/uL (4.8-10.8)
[2017-05-10 14:12] LABS: ALT/SGPT 25 U/L (12-78); BLOOD UREA NITROGEN 17 mg/dl (7-18); BUN/CREATININE RATIO 17.3 (10-20); CALCIUM 8.8 mg/dl (8.5-10.1); CARBON DIOXIDE 27 mmol/L (21-32); CHLORIDE 106 mmol/L (98-107); CHOLESTEROL 147 mg/dl (0-200); GLUCOSE 94 mg/dl (70-99); POTASSIUM 4.2 mmol/L (3.5-5.1); SODIUM 140 mmol/L (136-145); TRIGLYCERIDES 160 mg/dl (0-150); VERY LOW DENSITY LIPOPROT CALC 32 mg/dl
[2017-05-10 14:17] LABS: ALB/GLOB RATIO 1.3 (0.9-2); ALKALINE PHOSPHATASE 84 U/L (45-117); AST/SGOT 19 U/L (15-37); CHOLESTEROL/HDL RATIO 3.1; HDL CHOLESTEROL 47 mg/dl; LDL CHOLESTEROL CALCULATED 68 mg/dl
== END | disposition home or self-care (01) ==
LOC: C.LABSPEC 13:29
PROVIDERS: ATTEND Family Medicine
DX: E78.2 Mixed hyperlipidemia (principal); R35.0 Frequency of micturition